=== PATIENT | female | born 1960 | race African-American/Black ===

== ENCOUNTER 2021-05-06 10:17 | Inpatient (IN) | payer OTHER ==
[~2021-05-06] VITALS: Ht 167.6 cm; Wt 124.3 kg
[2021-05-06 10:55] LABS: BASOPHILS % 0.7 % (0.0-2.0); EOSINOPHILS % 1.5 % (0.0-5.0); HEMATOCRIT. 38.2 % (36.0-48.0); HEMOGLOBIN. 13.3 g/dL (12.0-16.0); LYMPHOCYTES % 42.6 % (20.0-50.0); MEAN CORPUSCULAR HEMOGLOBIN 28.5 pg (28.0-32.0); MEAN CORPUSCULAR VOLUME 81.9 fL (81.0-99.0); MEAN PLATELET VOLUME 9.3 fl (7.4-10.4); MONOCYTES % 5.6 % (2.0-8.0); NEUTROPHILS % 49.6 % (40.0-76.0); PLATELET 190 x1000/uL (130-400); RED BLOOD CELL COUNT 4.66 mill/uL (4.2-5.4); RED CELL DISTRIBUTION WIDTH 15.1 % (11.6-14.6)
[2021-05-06 11:06] LABS: CHLORIDE 105 mEq/L (98-107)
[2021-05-06] MEDS ORDERED: DOCUSATE SODIUM 100MG CAPSULE PO PRN (16:45)
[2021-05-06] MEDS ORDERED: CLONIDINE 0.1MG TABLET PO PRN (16:45)
[2021-05-06] MEDS ORDERED: GUAIFENESIN 200MG/10ML SUGAR FREE UDC PO PRN (16:45)
[2021-05-06] MEDS ORDERED: ACETAMINOPHEN 325MG TABLET PO PRN (16:45)
[2021-05-06] MEDS ORDERED: NITROGLYCERIN 0.4MG TABLET SL SL PRN (16:45)
[2021-05-06] MEDS ORDERED: ONDANSETRON HCL 4MG/2ML INJ IV PRN (16:45)
[2021-05-06] MEDS ORDERED: KETOROLAC 15MG/ML VIAL IV PRN (16:45)
[2021-05-06] MEDS ORDERED: MAGNESIUM/ALUMINUM HYDROXIDE/SIMETHICONE 30ML UDC PO PRN (16:45)
[2021-05-06] MEDS ORDERED: IPRATROPIUM/ALBUTEROL 0.5-3(2.5)MG/3ML NEB NEB PRN (16:45)
[2021-05-06] MEDS ORDERED: ENOXAPARIN 40MG/0.4ML SYR SUBCUT SCH (17:00)
[2021-05-06] MEDS ORDERED: DEXTROSE 50% WATER 50ML SYRINGE IV PRN (17:15)
[2021-05-06] MEDS: INSULIN LISPRO 100 UNITS/ML SUBCUT SCH ×2 (17:20→21:14)
[2021-05-06 17:37] LABS: VITAMIN B12 SERUM 555 pg/mL (211-911)
[2021-05-06 17:45] VITALS: BP 148/87
[2021-05-06 20:10] VITALS: BP 118/58
[2021-05-06] MEDS: FAMOTIDINE 20MG TABLET PO SCH (21:00)
[2021-05-06] MEDS ORDERED: ZOLPIDEM TARTRATE 5MG TABLET PO PRN (21:00)
[2021-05-06] MEDS: BLOOD SUGAR DIAGNOSTIC STRIP TEST SCH (21:05)
[2021-05-06] MEDS: METOPROLOL TARTRATE 25MG TABLET PO SCH (21:05)
[2021-05-06] MEDS ORDERED: FURO20TA4 PO (21:33)
[2021-05-06] MEDS ORDERED: METF-907 PO (21:33)
[2021-05-06] MEDS ORDERED: HYDR453.4 TP (21:33)
[2021-05-06] MEDS ORDERED: AMLO5TAB88 PO (21:33)
[2021-05-06] MEDS ORDERED: HUM100IN SUBCUT (21:33)
[2021-05-06] MEDS ORDERED: ROSU20TA2 (21:33)
[2021-05-06] MEDS ORDERED: ALBU90AE (21:33)
[2021-05-06] MEDS ORDERED: LISI40TA13 PO (21:33)
[2021-05-07 00:29] VITALS: BP 121/55
[2021-05-07 00:30] LABS: CREATINE KINASE 166 IU/L (26-192)
[2021-05-07 00:31] LABS: CREATINE KINASE MB FRACTION 2.1 ng/mL (0.5-3.6)
[2021-05-07 04:00] VITALS: BP 108/61
[2021-05-07] MEDS: BLOOD SUGAR DIAGNOSTIC STRIP TEST SCH ×4 (06:11→21:08)
[2021-05-07] MEDS: INSULIN LISPRO 100 UNITS/ML SUBCUT SCH ×4 (06:11→21:23)
[2021-05-07 06:40] LABS: BASOPHILS % 0.6 % (0.0-2.0); EOSINOPHILS % 1.7 % (0.0-5.0); HEMATOCRIT. 38.8 % (36.0-48.0); HEMOGLOBIN. 12.9 g/dL (12.0-16.0); LYMPHOCYTES % 45.8 % (20.0-50.0); MEAN CORPUSCULAR HEMOGLOBIN 27.8 pg (28.0-32.0); MEAN CORPUSCULAR VOLUME 83.6 fL (81.0-99.0); MEAN PLATELET VOLUME 9.7 fl (7.4-10.4); MONOCYTES % 5.7 % (2.0-8.0); NEUTROPHILS % 46.2 % (40.0-76.0); PLATELET 209 x1000/uL (130-400); RED BLOOD CELL COUNT 4.64 mill/uL (4.2-5.4); RED CELL DISTRIBUTION WIDTH 14.8 % (11.6-14.6)
[2021-05-07 06:51] LABS: CHLORIDE 103 mEq/L (98-107)
[2021-05-07 07:08] LABS: PHOSPHORUS 3.4 mg/dL (2.5-4.9)
[2021-05-07 07:09] LABS: CREATINE KINASE 165 IU/L (26-192)
[2021-05-07 07:14] LABS: CREATINE KINASE MB FRACTION 1.8 ng/mL (0.5-3.6)
[2021-05-07 08:09] VITALS: BP 153/83
[2021-05-07] MEDS: FAMOTIDINE 20MG TABLET PO SCH ×3 (08:39→21:07)
[2021-05-07] MEDS: METOPROLOL TARTRATE 25MG TABLET PO SCH ×2 (08:47→21:08)
[2021-05-07] MEDS ORDERED: ASPIRIN 325MG EC TABLET PO SCH (09:00)
[2021-05-07] MEDS: AMLODIPINE 5MG TABLET PO SCH (09:21)
[2021-05-07 11:51] VITALS: BP 114/61
[2021-05-07] MEDS ORDERED: FUROSEMIDE 40MG/4ML VIAL IVP SCH (14:30)
[2021-05-07 16:00] VITALS: BP 120/69
[2021-05-07] MEDS: ENOXAPARIN 30MG/0.3ML SYR SUBCUT SCH (17:48)
[2021-05-07 20:00] VITALS: BP 148/52
[2021-05-07] MEDS: ATORVASTATIN CALCIUM 40MG TABLET PO SCH (21:07)
[2021-05-08] VITALS: BP 131/75
[2021-05-08] MEDS: ENOXAPARIN 30MG/0.3ML SYR SUBCUT SCH ×3 (06:10→18:00)
[2021-05-08] MEDS: FUROSEMIDE 40MG/4ML VIAL IVP SCH ×2 (06:10→20:11)
[2021-05-08] MEDS: BLOOD SUGAR DIAGNOSTIC STRIP TEST SCH ×4 (06:10→21:49)
[2021-05-08] MEDS: INSULIN LISPRO 100 UNITS/ML SUBCUT SCH ×4 (06:58→21:55)
[2021-05-08 08:00] VITALS: BP 109/53
[2021-05-08] MEDS ORDERED: HEPARIN SODIUM 1,000 UNIT/1ML VIAL IV ONE (08:58)
[2021-05-08] MEDS ORDERED: NITROGLYCERIN 50MCG/ML 10ML VIAL (CATH LAB) IV ONE (08:58)
[2021-05-08] MEDS ORDERED: NICARDIPINE 100MCG/ML 10ML VIAL (CATH LAB) IV ONE (08:58)
[2021-05-08] MEDS: METOPROLOL TARTRATE 25MG TABLET PO SCH ×2 (09:00→21:53)
[2021-05-08] MEDS: AMLODIPINE 5MG TABLET PO SCH (09:00)
[2021-05-08] MEDS: ASPIRIN 81MG EC TABLET PO SCH (09:13)
[2021-05-08] MEDS: FAMOTIDINE 20MG TABLET PO SCH ×2 (09:13→21:52)
[2021-05-08] MEDS: SPIRONOLACTONE 25MG TABLET PO SCH (09:16)
[2021-05-08] MEDS ORDERED: LIDOCAINE HCL 1% 30ML VIAL (10MG/ML) ONE (12:16)
[2021-05-08] MEDS ORDERED: FENTANYL CITRATE/PF 50MCG/ML 2ML VIAL ONE (12:16)
[2021-05-08] MEDS ORDERED: VERAPAMIL HCL 2.5 MG/1 ML 2ML VIAL IV ONE (12:16)
[2021-05-08] MEDS ORDERED: MIDAZOLAM HCL 2 MG/2 ML VIAL ONE (12:16)
[2021-05-08] MEDS ORDERED: IODIXANOL 320MG/ML 100 ML BOTTLE IV ONE (12:17)
[2021-05-08] MEDS ORDERED: DIPHENHYDRAMINE 50MG/ML VIAL ONE (12:25)
[2021-05-08] MEDS ORDERED: ATROPINE SULFATE 1MG/10ML SYR IV PRN (14:00)
[2021-05-08 18:00] VITALS: BP 129/74
[2021-05-08 20:00] VITALS: BP 127/58
[2021-05-08] MEDS: ATORVASTATIN CALCIUM 40MG TABLET PO SCH (21:53)
[2021-05-08] MEDS: ACETAMINOPHEN 325MG TABLET PO PRN (21:53)
[2021-05-09] VITALS: BP 111/52
[2021-05-09 04:00] VITALS: BP 117/66
[2021-05-09] MEDS: BLOOD SUGAR DIAGNOSTIC STRIP TEST SCH (06:14)
[2021-05-09] MEDS: FUROSEMIDE 40MG/4ML VIAL IVP SCH (06:47)
[2021-05-09] MEDS: INSULIN LISPRO 100 UNITS/ML SUBCUT SCH (06:48)
[2021-05-09] MEDS: ENOXAPARIN 30MG/0.3ML SYR SUBCUT SCH (06:48)
[2021-05-09 07:32] LABS: BASOPHILS % 0.5 % (0.0-2.0); EOSINOPHILS % 1.8 % (0.0-5.0); HEMATOCRIT. 35.5 % (36.0-48.0); HEMOGLOBIN. 12.1 g/dL (12.0-16.0); LYMPHOCYTES % 37.6 % (20.0-50.0); MEAN CORPUSCULAR HEMOGLOBIN 27.8 pg (28.0-32.0); MEAN PLATELET VOLUME 9.4 fl (7.4-10.4); NEUTROPHILS % 53.1 % (40.0-76.0); PLATELET 180 x1000/uL (130-400); RED BLOOD CELL COUNT 4.33 mill/uL (4.2-5.4); RED CELL DISTRIBUTION WIDTH 14.7 % (11.6-14.6)
[2021-05-09 07:53] LABS: CHLORIDE 105 mEq/L (98-107)
[2021-05-09 08:00] VITALS: BP 125/81
[2021-05-09] MEDS: FAMOTIDINE 20MG TABLET PO SCH (08:47)
[2021-05-09] MEDS: ACETAMINOPHEN 325MG TABLET PO PRN (08:47)
[2021-05-09] MEDS: AMLODIPINE 5MG TABLET PO SCH (08:47)
[2021-05-09] MEDS: SPIRONOLACTONE 25MG TABLET PO SCH (08:47)
[2021-05-09] MEDS: METOPROLOL TARTRATE 25MG TABLET PO SCH (08:47)
[2021-05-09] MEDS: ASPIRIN 81MG EC TABLET PO SCH (08:48)
[2021-05-09 09:28] VITALS: BP 125/81
== END 2021-05-09 11:30 | disposition home or self-care (01) | DRG 205 ==
LOC: ER 10:17 → 5WST 12:34 → EDBEDREQ 12:40 → EDBEDREQTM 12:40 → ENRESERV 15:45
PROVIDERS: ADMIT Internal Medicine; ATTEND Internal Medicine
PROC: 5A09357 Assistance with Respiratory Ventilation, Less than 24 Consecutive Hours, Continuous Positive Airway Pressure (ICD-10-PCS; 2021-05-06)
PROC: 5A09457 Assistance with Respiratory Ventilation, 24-96 Consecutive Hours, Continuous Positive Airway Pressure (ICD-10-PCS; principal; 2021-05-07)
PROC: 4A023N7 Measurement of Cardiac Sampling and Pressure, Left Heart, Percutaneous Approach (ICD-10-PCS; 2021-05-08)
PROC: B211YZZ Fluoroscopy of Multiple Coronary Arteries using Other Contrast (ICD-10-PCS; 2021-05-08)
PROC: B41FYZZ Fluoroscopy of Right Lower Extremity Arteries using Other Contrast (ICD-10-PCS; 2021-05-08)
DX: M94.0 Chondrocostal junction syndrome [Tietze] (principal); I50.33 Acute on chronic diastolic (congestive) heart failure; I25.110 Atherosclerotic heart disease of native coronary artery with unstable angina pectoris; Z68.41 Body mass index [BMI] 40.0-44.9, adult; E11.65 Type 2 diabetes mellitus with hyperglycemia; I16.0 Hypertensive urgency; I11.0 Hypertensive heart disease with heart failure; J45.909 Unspecified asthma, uncomplicated; Z20.822 Contact with and (suspected) exposure to COVID-19; E66.9 Obesity, unspecified; I25.10 Atherosclerotic heart disease of native coronary artery without angina pectoris; I25.2 Old myocardial infarction; Z79.4 Long term (current) use of insulin; Z79.899 Other long term (current) drug therapy
CPT/HCPCS: 36415; 71045; 80048; 80053; 80061; 82550; 82553; 82607; 82962; 83036; 83735; 83880; 84100; 84443; 84484; 85025; 87426; 93005; 93306; 93458; 93970; 94660; 99285; C1760; C1769; C1887; C1893; C1894; J1200; J1644; J1650; J1815; J1940; J2250; J3010; J3490; Q9967

== ENCOUNTER 2021-12-23 09:21 | Emergency (ER) | payer OTHER ==
[~2021-12-23] VITALS: Ht 167.6 cm; Wt 123.0 kg
[~2021-12-23 09:21] MED LIST: ALBU90AE; AMLO5TAB88 PO; FURO20TA4 PO; HUM100IN SUBCUT; HYDR453.4 TP; LISI40TA13 PO; METF-907 PO; ROSU20TA2
[2021-12-23 11:10] LABS: BASOPHILS % 0.6 % (0.0-2.0); EOSINOPHILS % 1.1 % (0.0-5.0); HEMOGLOBIN. 13.5 g/dL (12.0-16.0); MEAN CORPUSCULAR HEMOGLOBIN 27.8 pg (28.0-32.0); MEAN CORPUSCULAR VOLUME 84.7 fL (81.0-99.0); MEAN PLATELET VOLUME 9.1 fl (7.4-10.4); MONOCYTES % 5.2 % (2.0-8.0); NEUTROPHILS % 53.1 % (40.0-76.0); PLATELET 211 x1000/uL (130-400); RED BLOOD CELL COUNT 4.84 mill/uL (4.2-5.4); RED CELL DISTRIBUTION WIDTH 15.1 % (11.6-14.6)
[2021-12-23 11:11] LABS: CHLORIDE 105 mEq/L (98-107)
[2021-12-23 11:16] LABS: PROTHROMBIN TIME 10.3 sec (9.6-11.0)
[2021-12-23 12:00] LABS: CLARITY URINE CLEAR (CLEAR); COLOR URINE YELLOW (YELLOW); KETONES URINE NEGATIVE (NEGATIVE); LEUKOCYTE ESTERASE URINE NEGATIVE (NEGATIVE); NITRITE URINE NEGATIVE (NEGATIVE); OCCULT BLOOD URINE NEGATIVE (NEGATIVE); PH URINE 5.5 (4.5-8.0); PROTEIN URINE NEGATIVE (NEGATIVE); SPECIFIC GRAVITY URINE 1.005 (1.005-1.030); UROBILINOGEN URINE 0.2 E.U./dL (0.2-1.0)
[2021-12-23 12:13] VITALS: BP 137/82
[2021-12-23] MEDS ORDERED: IBUP-2028 PO (12:15)
[2021-12-23] MEDS ORDERED: IBUPROFEN 800MG TABLET PO ONE (12:15)
[2021-12-23] MEDS ORDERED: METOCLOPRAMIDE HCL 10MG TABLET PO ONE (12:15)
== END 2021-12-23 12:32 | disposition home or self-care (01) ==
LOC: ER 09:21 → CANBEDREQ 13:54
DX: R53.1 Weakness (principal); R51.9 Headache, unspecified; E11.9 Type 2 diabetes mellitus without complications; I25.10 Atherosclerotic heart disease of native coronary artery without angina pectoris; I10 Essential (primary) hypertension; J45.909 Unspecified asthma, uncomplicated; Z98.61 Coronary angioplasty status; Z98.890 Other specified postprocedural states; Z79.4 Long term (current) use of insulin
CPT/HCPCS: 36415; 71045; 80053; 81003; 82962; 83605; 84145; 84484; 85025; 93005; 99285; J8597